=== PATIENT | female | born 1960 | race Caucasian/White ===

== ENCOUNTER 2018-06-11 11:30 | Day surgery (SDC) | payer BC ==
[~2018-06-11 11:30] MED LIST: Buffered Lidocaine 1% SYRIN* 1 ML/SYRINGE INTRADERM ONE
[2018-06-11] MEDS ORDERED: Povidone Iodine 5% OPTH* 30 ML BTL ONE (14:01)
[2018-06-11] MEDS ORDERED: Lidocaine 1%* 5 ML VIAL ONE (14:01)
[2018-06-11] MEDS ORDERED: Cyclopentolate 1% OPTH.SOL* 2 ML BTL ONE (14:01)
[2018-06-11] MEDS ORDERED: Neomycin/Polymy/Dex OPTH.SUSP* MAXITROL 0.1% 5 ML ONE (14:01)
[2018-06-11] MEDS ORDERED: acetaZOLAMIDE TAB* 250 MG ONE (14:01)
[2018-06-11] MEDS ORDERED: Lidocaine 2% EPI 1:200000 MPF*10-20 ML VIAL ONE (14:01)
[2018-06-11] MEDS ORDERED: Ketorolac 0.5% OPHTH (NF) 0.5 % 5 ML BTL ONE (14:01)
[2018-06-11] MEDS ORDERED: Phenylephrine OPHTH SOL 2.5%* 2 ML ONE (14:01)
[2018-06-11] MEDS ORDERED: Proparacaine 0.5% OPHTH.SOL* 15 ML BTL ONE (14:02)
[2018-06-11] MEDS ORDERED: Midazolam* 1 MG/ML 2 ML VIAL (2 MG) ONE ×2 (14:05→14:14)
[2018-06-11 14:42] VITALS: BP 106/69
--- NOTE | 2018-06-11 23:01 | OP ---
OPERATIVE NOTE: DATE OF OPERATION: 06/11/18 - [facility] DATE OF : [birth year] SURGEON: Stephen Miranda MD PREOPERATIVE DIAGNOSIS: Cataract right eye. POSTOPERATIVE DIAGNOSIS: Cataract right eye. OPERATIVE PROCEDURE: Extracapsular cataract extraction with intraocular lens implant right eye. PROCEDURE: The patient was brought to the operating room after being given 1/2 % Alcaine with epinephrine drops in the preoperative area. The eye was prepped and draped in the usual sterile fashion. Sterile drape and eyelid speculum were placed. Again, topical 1/2% Alcaine with epinephrine was given. A paracentesis incision was made at the 9 o'clock position with the No.75 blade. Clear cornea incision 2.2 x 2.2-mm was created at the 12 o'clock position starting at the anterior limbus using the 2.2-mm keratome. The anterior chamber was irrigated with 0.4 mL of 1% non-preservative intracameral lidocaine and filled with DisCoVisc. A capsulorrhexis was completed using the cystotome and the Utrata forceps. Hydrodissection was performed with balanced salt solution. The lens nucleus was removed with the Phacoemulsification handpiece without incident. Cortex was removed with the irrigation-aspiration handpiece. The capsular bag was re-inflated using DisCoVisc and an [id number], [id number] implant was inserted with the shooter and oriented to the 74 degree meridian. Horizontal reference simpson were made with the patient seated in the preoperative area in a seated position. All measurement were confirmed with ORA. The irrigation-aspiration handpiece was used to remove all residual DisCoVisc. The eye was refilled with balanced salt solution and the wound checked and found to be watertight. Topical Maxitrol drops were given. [id number]/[facility] #: [id number] [facility]
== END 2018-06-11 14:52 | disposition home or self-care (01) ==
LOC: OREAST 11:30
PROVIDERS: ATTEND Specialist
DX: H25.11 Age-related nuclear cataract, right eye (principal)
CPT/HCPCS: A9270-GY; J2250; V2787

== ENCOUNTER 2018-06-18 08:33 | Day surgery (SDC) | payer BC ==
[~2018-06-18 08:33] MED LIST changes: +Acetaminophen TAB* 325 MG PO PRN
[2018-06-18] MEDS ORDERED: Lidocaine 2% EPI 1:200000 MPF*10-20 ML VIAL ONE (09:43)
[2018-06-18] MEDS ORDERED: Povidone Iodine 5% OPTH* 30 ML BTL ONE (09:43)
[2018-06-18] MEDS ORDERED: Phenylephrine OPHTH SOL 2.5%* 2 ML ONE (09:43)
[2018-06-18] MEDS ORDERED: Ketorolac 0.5% OPHTH (NF) 0.5 % 5 ML BTL ONE (09:43)
[2018-06-18] MEDS ORDERED: Proparacaine 0.5% OPHTH.SOL* 15 ML BTL ONE (09:43)
[2018-06-18] MEDS ORDERED: Neomycin/Polymy/Dex OPTH.SUSP* MAXITROL 0.1% 5 ML ONE (09:43)
[2018-06-18] MEDS ORDERED: acetaZOLAMIDE TAB* 250 MG ONE (09:43)
[2018-06-18] MEDS ORDERED: Lidocaine 1%* 5 ML VIAL ONE (09:43)
[2018-06-18] MEDS ORDERED: Cyclopentolate 1% OPTH.SOL* 2 ML BTL ONE (09:43)
[2018-06-18] MEDS ORDERED: Midazolam* 1 MG/ML 2 ML VIAL (2 MG) ONE ×2 (11:10→11:27)
[2018-06-18 12:31] VITALS: BP 112/77
--- NOTE | 2018-06-18 13:31 | OP ---
OPERATIVE NOTE: DATE OF OPERATION: 06/19/18 DATE OF : 60 SURGEON: Stephen Miranda M.D. PREOPERATIVE DIAGNOSIS: Cataract, left eye. POSTOPERATIVE DIAGNOSIS: Cataract, left eye. OPERATIVE PROCEDURE: Extracapsular cataract extraction with intraocular lens implant, left eye. PROCEDURE: The patient was brought to the operating room after being given 1/2% Alcaine with epineph rine drops in the preoperative area. The eye was prepped and draped in the usual sterile fashion. S terile drape and eyelid speculum were placed. Again, topical 1/2% Alcaine with epinephrine was given . A paracentesis incision was made at the 3 o'clock position with the No.75 blade. Clear cornea inc ision 2.2 x 2.2-mm was created at the 6 o'clock position starting at the anterior limbus using the 2. 2-mm keratome. The anterior chamber was irrigated with 0.4 mL of 1% non-preservative intracameral li docaine and filled with DisCoVisc. A capsulorrhexis was completed using the cystotome and the Utrata forceps. Hydrodissection was performed with balanced salt solution. The lens nucleus was removed wi th the Phacoemulsification handpiece without incident. Cortex was removed with the irrigation-aspira tion handpiece. The capsular bag was re-inflated using DisCoVisc and an [id number] implant was insert ed with the shooter. All measurements were confirmed using ORA. The irrigation-aspiration handpiece was used to remove all residual DisCoVisc. The eye was refilled with balanced salt solution and the wound checked and found to be watertight. Topical Maxitrol drops were given. [id number]/[facility] #: [id number]
== END 2018-06-18 12:14 | disposition home or self-care (01) ==
LOC: OREAST 08:33
PROVIDERS: ATTEND Specialist
DX: H25.13 Age-related nuclear cataract, bilateral (principal); Z78.0 Asymptomatic menopausal state; Z88.1 Allergy status to other antibiotic agents; Z88.5 Allergy status to narcotic agent; Z96.1 Presence of intraocular lens
CPT/HCPCS: A9270-GY; J2250; V2632